=== PATIENT | female | born 1985 | race Caucasian/White ===

== ENCOUNTER 2016-07-08 10:34 | Day surgery (SDC) | payer OTHER ==
[~2016-07-08] VITALS: Ht 152.4 cm; Wt 40.4 kg
[~2016-07-08 10:34] MED LIST: BCP; BISA5TAB7 PO; FERR325T PO; LOES1TAB12 PO; MAPA325T2 PO; OXYC1TAB23 PO; REME15TA; TRAZ50TA
[2016-07-08 11:06] LABS: MEAN CORPUSCULAR HEMOGLOBIN 23.1 pg (27.0-33.0); MEAN CORPUSCULAR HGB CONC 31.3 g/dl (32.0-36.5); MEAN CORPUSCULAR VOLUME 73.6 fl (80.0-96.0); RED CELL DISTRIBUTION WIDTH 27.9 % (11.5-14.5); WHITE BLOOD COUNT 5.5 K/mm3 (4.0-10.0)
[2016-07-08] MEDS ORDERED: MIDAZOLAM INJ 2 MG/2 ML VIAL (J2250) As Ordered ONE (11:20)
[2016-07-08] MEDS ORDERED: fentaNYL 250 MCG/5 ML INJECTION (J3010) As Ordered ONE (11:21)
[2016-07-08] MEDS ORDERED: LIDOCAINE 2% INJ 100 MG/5 ML SDV (FOR ANES.) As Ordered ONE (11:28)
[2016-07-08] MEDS ORDERED: PROPOFOL 200 MG/20 ML VIAL As Ordered ONE (11:29)
[2016-07-08] MEDS ORDERED: ROCURONIUM BROMIDE 50 MG/5 ML VIAL As Ordered ONE (11:30)
[2016-07-08] MEDS ORDERED: ceFAZolin 1GM INJ (J0690) As Ordered ONE (11:37)
[2016-07-08 11:48] LABS: CONTROL LINE UCG INT CTR LINE PRESENT
[2016-07-08] MEDS ORDERED: ceFAZolin SOD 1 GM in D5W MINI-BAG PLUS 50 ML IV ONE (12:00)
[2016-07-08] MEDS ORDERED: LR 1,000 ML IV SCH ×3 (12:00→15:15)
[2016-07-08] MEDS ORDERED: METHYLENE BLUE 1% 10 ML VIAL (Q9968) As Ordered ONE (12:08)
[2016-07-08] MEDS ORDERED: BUPIVACAINE HCL 0.25% 30 ML VIAL As Ordered ONE (12:08)
[2016-07-08] MEDS ORDERED: ONDANSETRON 4MG/2ML VIAL (J2405) As Ordered ONE ×2 (13:41→14:58)
[2016-07-08] MEDS ORDERED: KETOROLAC 60 MG/2 ML VIAL (J1885) As Ordered ONE (13:42)
[2016-07-08] MEDS ORDERED: NEOSTIGMINE 1MG/ML 5 ML SYRINGE (J2710) As Ordered ONE (13:42)
[2016-07-08] MEDS ORDERED: GLYCOPYRROLATE INJ 0.2 MG/ML 2 ML VIAL As Ordered ONE (13:43)
[2016-07-08] MEDS ORDERED: BUPIVACAINE HCL 0.25% 30 ML VIAL XX ONE (14:17)
[2016-07-08] MEDS ORDERED: OXYC1TAB23 PO (14:29)
[2016-07-08] MEDS ORDERED: fentaNYL 100 MCG/2 ML INJECTION (J3010) As Ordered ONE (14:58)
[2016-07-08] MEDS ORDERED: PERCOCET 5MG/325MG TAB As Ordered ONE ×2 (14:58→14:59)
[2016-07-08] MEDS: PERCOCET 5MG/325MG TAB PO PRN ×4 (15:00→19:34)
[2016-07-08] MEDS ORDERED: fentaNYL 100 MCG/2 ML INJECTION (J3010) IV PRN (15:15)
[2016-07-08] MEDS ORDERED: ONDANSETRON 4MG/2ML VIAL (J2405) IV PRN ×2 (15:15)
[2016-07-08] MEDS ORDERED: METOCLOPRAMIDE INJ 10MG/2ML VIAL (J2765) IV PRN (15:15)
[2016-07-08] MEDS ORDERED: PERCOCET 5MG/325MG TAB PO PRN (15:15)
[2016-07-08] MEDS ORDERED: KETOROLAC 30 MG/ML VIAL (J1885) IV PRN (15:15)
[2016-07-08] MEDS ORDERED: MORPHINE 4 MG/ML 1ML SYRINGE IV PRN (15:15)
[2016-07-08 16:15] VITALS: BP 108/55
[2016-07-08 16:45] VITALS: BP 111/56
[2016-07-08 17:45] VITALS: BP 106/55
[2016-07-08] MEDS: LR 1,000 ML IV SCH ×2 (17:54→23:15)
[2016-07-08 18:45] VITALS: BP 96/53
[2016-07-08 19:45] VITALS: BP 92/51
[2016-07-08 20:45] VITALS: BP 100/51
[2016-07-08] MEDS: DOCUSATE SODIUM 100 MG CAP PO SCH (21:00)
--- NOTE | 2016-07-08 23:10 | RO ---
DATE OF PROCEDURE: 07/08/2016 PREOPERATIVE DIAGNOSES: Fibroid uterus, menorrhagia. POSTOPERATIVE DIAGNOSES: Fibroid uterus, menorrhagia. PROCEDURE: Robotic-assisted laparoscopic hysterectomy, cystoscopy. SURGEON: Austin Lopez MD OLIVE KNOCKER: Otilia Martinez ANESTHESIA: General endotracheal. ESTIMATED BLOOD LOSS: 100 mL. FINDINGS: Enlarged 12-13 weeks' size, irregular uterus with multiple fibroids, including a fibroid prolapsing through the uterine cervix. Normal ovaries and fallopian tubes. Normal upper abdomen. DESCRIPTION OF PROCEDURE: The patient taken to the operating room where general endotracheal anesthesia was induced. She was prepped and draped in a sterile fashion in the dorsal lithotomy position. A Moreno catheter was placed. A VCare uterine manipulator was placed. A periumbilical incision was made with a scalpel. A Veress needle was placed through this incision while tenting up on the skin of the abdomen. Intra-abdominal location of the Veress needle was assessed with the use of a saline-filled syringe. A pneumoperitoneum was created. The Veress needle was removed. An 11 mm trocar was placed through this incision while tenting up on the skin of the abdomen. Three 8 mm suprapubic ports were placed under direct visualization without difficulty. The wet process assistant head miller, Otilia Martinez, assisted with placement of the ports and docking of the robot. She then had the important role of manipulating the uterus so the surgery could be performed seamlessly. She helped undock the robot and close the surgical wounds at the end of the procedure. The utero-ovarian ligaments were grasped with a PK dissector, coagulated, and incised with monopolar Endo Vahe. The fallopian tube and round ligaments were coagulated and incised in a similar way. The anterior and posterior leaves of the broad ligament were . Bladder flap was created. The uterine vessels were skeletonized, coagulated, and incised. Colpotomy was created using the monopolar Endo Vahe and extended circumferentially around the upper vagina at the level of the VCare cut. Specimens including the uterus and cervix were removed through the vagina. The vagina was closed with a V-Loc suture in a running fashion. The pelvis was irrigated. The patient received methylene blue dye intravenously. Cystoscopy was performed using a 70-degree cystoscope. Bilateral ureteral jets were identified, and the bladder mucosa was normal. Moreno catheter was replaced. All instruments were removed. The fascia at the umbilical port was closed with an interrupted suture of #0 Vicryl. Skin was closed with #4-0 Monocryl. Sponge, instrument, and needle counts were correct.
[2016-07-09] VITALS: BP 96/52
[2016-07-09] MEDS: PERCOCET 5MG/325MG TAB PO PRN (00:32)
[2016-07-09 04:00] VITALS: BP 101/52
[2016-07-09] MEDS: LR 1,000 ML IV SCH (07:15)
[2016-07-09 07:41] LABS: MEAN CORPUSCULAR HEMOGLOBIN 23.2 pg (27.0-33.0); MEAN CORPUSCULAR HGB CONC 30.6 g/dl (32.0-36.5); MEAN CORPUSCULAR VOLUME 75.7 fl (80.0-96.0); WHITE BLOOD COUNT 13.1 K/mm3 (4.0-10.0)
[2016-07-09 08:00] VITALS: BP 102/57
[2016-07-09] MEDS: DOCUSATE SODIUM 100 MG CAP PO SCH (08:12)
== END 2016-07-09 12:00 | disposition home or self-care (01) ==
LOC: M SDC 10:34 → M PED 16:07 → M SDC 07-09 12:00
PROVIDERS: ATTEND Specialist
DX: D25.9 Leiomyoma of uterus, unspecified (principal); N92.0 Excessive and frequent menstruation with regular cycle; F17.210 Nicotine dependence, cigarettes, uncomplicated; K21.9 Gastro-esophageal reflux disease without esophagitis; D64.9 Anemia, unspecified; G47.9 Sleep disorder, unspecified; Z79.899 Other long term (current) drug therapy
CPT/HCPCS: 36415; 58570; 84703; 85027; 88309; 96374; 96375; J0690; J1885; J2250; J2405; J2710; J3010; Q9968

== ENCOUNTER 2017-03-30 14:35 | Emergency (ER) | payer OTHER ==
[~2017-03-30] VITALS: Ht 152.4 cm; Wt 41.8 kg
[~2017-03-30 14:35] MED LIST changes: +FERR1TAB8 PO; -FERR325T PO
[2017-03-30] MEDS ORDERED: KETOROLAC TROMETHAMINE 10 MG TAB PO ONE (15:30)
[2017-03-30] MEDS ORDERED: CYCLOBENZAPRINE 10 MG TAB PO ONE (15:30)
[2017-03-30] MEDS ORDERED: NORCO, ANEXSIA 5/325MG TABLET (HYDROcodone/ACETAMINOPHEN) PO ONE (16:45)
[2017-03-30] MEDS ORDERED: NORCOTAB PO (17:41)
[2017-03-30] MEDS ORDERED: CYCL10TA PO (17:41)
[2017-03-30 17:46] VITALS: BP 109/69
== END 2017-03-30 17:56 | disposition home or self-care (01) ==
LOC: M ED 14:35
DX: S16.1XXA Strain of muscle, fascia and tendon at neck level, initial encounter (principal); X58.XXXA Exposure to other specified factors, initial encounter; Y92.89 Other specified places as the place of occurrence of the external cause; Y93.89 Activity, other specified; Y99.8 Other external cause status; Z87.828 Personal history of other (healed) physical injury and trauma; F17.210 Nicotine dependence, cigarettes, uncomplicated

== ENCOUNTER → 2017-07-07 | Outpatient (REF) | payer OTHER | LOC: M SFHCPLAZ 14:01 | DX: Z13.0 Encounter for screening for diseases of the blood and blood-forming organs and certain disorders involving the immune mechanism (principal); Z13.21 Encounter for screening for nutritional disorder; Z13.29 Encounter for screening for other suspected endocrine disorder ==

== ENCOUNTER → 2017-07-10 | Outpatient (CLI) | payer MEDICAID | LOC: M WHC 12:35 | DX: R10.9 Unspecified abdominal pain (principal); Z90.711 Acquired absence of uterus with remaining cervical stump | CPT/HCPCS: 76830 ==

== ENCOUNTER → 2017-12-12 | Outpatient (CLI) | payer MEDICAID | LOC: M OUTALCOH 08:58 | DX: Z03.89 Encounter for observation for other suspected diseases and conditions ruled out (principal) ==

== ENCOUNTER 2017-12-18 15:16 | Outpatient (RCR) | payer MEDICAID | END 2017-12-27 | LOC: M OUTALCOH 15:16 | DX: Z03.89 Encounter for observation for other suspected diseases and conditions ruled out (principal) ==

== ENCOUNTER 2018-03-02 15:15 | Emergency (ER) | payer OTHER, MEDICAID | END 2018-03-02 17:16 | disposition left against medical advice (07) | LOC: M ED 15:15 | DX: R10.32 Left lower quadrant pain (principal); Z53.21 Procedure and treatment not carried out due to patient leaving prior to being seen by health care provider ==

== ENCOUNTER → 2020-04-17 | Outpatient (REF) | payer OTHER ==
[~2020-04-17] MED LIST changes: +CYCL-707 PO; +HYDR-3715 PO; -MAPA325T2 PO; +MAPA325T8 PO
[2020-04-17 14:05] LABS: HEMATOCRIT 39.5 % (36.0-47.0); HEMOGLOBIN 12.2 g/dl (12.0-15.5); MEAN CORPUSCULAR HEMOGLOBIN 25.9 pg (27.0-33.0); MEAN CORPUSCULAR HGB CONC 30.9 g/dl (32.0-36.5); MEAN CORPUSCULAR VOLUME 83.9 fl (80.0-96.0); PLATELET COUNT, AUTOMATED 309 10^3/uL (150-450); RED BLOOD COUNT 4.71 10^6/uL (4.00-5.40); WHITE BLOOD COUNT 5.4 10^3/uL (4.0-10.0)
[2020-04-17 14:42] LABS: FERRITIN 80 NG/ML (8-252); IRON (FE) 62 UG/DL (50-170); PERCENT SATURATION 21.4 % (13.2-45.0); TOTAL IRON BINDING CAPACITY 290 UG/DL (250-450)
== END ==
LOC: M SFHCPLAZ 11:15
PROVIDERS: ATTEND Family Medicine
DX: Z00.00 Encounter for general adult medical examination without abnormal findings (principal); D50.8 Other iron deficiency anemias

== ENCOUNTER 2021-09-05 13:05 | Emergency (ER) | payer OTHER ==
[~2021-09-05] VITALS: Ht 152.4 cm; Wt 37.1 kg
[2021-09-05] MEDS ORDERED: KETOROLAC 60MG 2ML VIAL IM ONE (14:35)
[2021-09-05] MEDS ORDERED: KETOROLAC 30 MG/ML 1ML VIAL IV ONE (14:50)
[2021-09-05 15:54] LABS: BASO # 0.1 10^3/uL (0.0-0.2); BASO % 0.7 % (0.0-1.0); EOS # 0.1 10^3/uL (0.0-0.5); EOS % 1.6 % (0.0-3.0); HEMATOCRIT 36.4 % (36.0-47.0); HEMOGLOBIN 11.5 g/dl (12.0-15.5); LYMPH # 2.2 10^3/uL (1.5-5.0); LYMPH % 29.4 % (24.0-44.0); MEAN CORPUSCULAR HEMOGLOBIN 25.9 pg (27.0-33.0); MEAN CORPUSCULAR HGB CONC 31.6 g/dl (32.0-36.5); MONO # 0.7 10^3/uL (0.0-0.8); MONO % 8.8 % (2.0-8.0); NEUTROPHILS # 4.5 10^3/uL (1.5-8.5); NEUTROPHILS % 59.1 % (36.0-66.0); PLATELET COUNT, AUTOMATED 343 10^3/uL (150-450); RED BLOOD COUNT 4.44 10^6/uL (4.00-5.40); WHITE BLOOD COUNT 7.6 10^3/uL (4.0-10.0)
[2021-09-05] MEDS ORDERED: MORPHINE 4 MG/ML 1ML VIAL/SYRINGE (J2270) IV ONE (16:20)
[2021-09-05] MEDS ORDERED: ONDANSETRON 4MG/2ML VIAL IV ONE (16:20)
[2021-09-05] MEDS ORDERED: diphenhydrAMINE 50MG/ML VIAL (J1200) IV ONE (16:25)
[2021-09-05 17:20] VITALS: BP 113/60
[2021-09-05] MEDS ORDERED: PERCOCET 5MG/325MG TAB PO ONE ×2 (20:35→22:05)
[2021-09-05] MEDS ORDERED: PERC5TAB12 PO (21:53)
== END 2021-09-05 22:20 | disposition home or self-care (01) ==
LOC: M ED 13:05
DX: M50.23 Other cervical disc displacement, cervicothoracic region (principal); M54.12 Radiculopathy, cervical region; M48.02 Spinal stenosis, cervical region; E23.7 Disorder of pituitary gland, unspecified; D64.9 Anemia, unspecified; F17.210 Nicotine dependence, cigarettes, uncomplicated
CPT/HCPCS: 72141; 80047; 85025; 87426; 96374; 96375; 99284; J1200; J1885; J2270; J2405

== ENCOUNTER 2022-01-17 12:02 | Emergency (ER) | payer OTHER ==
[~2022-01-17] VITALS: Ht 152.4 cm; Wt 33.7 kg
[~2022-01-17 12:02] MED LIST changes: +PERC5TAB12 PO
[2022-01-17 12:45] VITALS: BP 104/67
== END 2022-01-17 17:39 | disposition home or self-care (01) ==
LOC: M ED 12:02
DX: M54.2 Cervicalgia (principal); S40.021A Contusion of right upper arm, initial encounter; S40.022A Contusion of left upper arm, initial encounter; Y04.8XXA Assault by other bodily force, initial encounter; Y07.59 Other non-family member, perpetrator of maltreatment and neglect; Y92.018 Other place in single-family (private) house as the place of occurrence of the external cause; D64.9 Anemia, unspecified; Z77.098 Contact with and (suspected) exposure to other hazardous, chiefly nonmedicinal, chemicals

== ENCOUNTER → 2022-03-06 | Outpatient (CLI) | payer OTHER ==
[~2022-03-06] MED LIST changes: +PROHANCE 279.3MG/ML 15ML VIAL ONE
== END ==
LOC: M PLAIMG 11:35
PROVIDERS: ATTEND Student in an Organized Health Care Education/Training Program
DX: E23.6 Other disorders of pituitary gland (principal)
CPT/HCPCS: 70553; A9576

== ENCOUNTER → 2023-02-03 | Outpatient (CLI) | payer MEDICAID ==
[~2023-02-03] MED LIST changes: -PROHANCE 279.3MG/ML 15ML VIAL ONE
== END ==
LOC: M OUTALCOH 12:52
PROVIDERS: ATTEND Psychiatry & Neurology Psychiatry
DX: Z53.9 Procedure and treatment not carried out, unspecified reason (principal)

== ENCOUNTER 2023-02-24 14:00 | Outpatient (RCR) | payer MEDICAID | END 2023-02-27 | LOC: M OUTALCOH 14:00 | PROVIDERS: ATTEND Psychiatry & Neurology Psychiatry | DX: F15.10 Other stimulant abuse, uncomplicated (principal); F17.200 Nicotine dependence, unspecified, uncomplicated ==

== ENCOUNTER → 2023-03-17 | Outpatient (REF) | payer OTHER | LOC: M SFHCPLAZ 17:47 | PROVIDERS: ATTEND Family Medicine | DX: E55.9 Vitamin D deficiency, unspecified (principal); D50.8 Other iron deficiency anemias; E23.6 Other disorders of pituitary gland; Z13.220 Encounter for screening for lipoid disorders; Z13.1 Encounter for screening for diabetes mellitus; Z53.9 Procedure and treatment not carried out, unspecified reason ==